=== PATIENT | female | born 1975 | race Asian ===

== ENCOUNTER 2016-12-26 19:47 | Emergency (ER) | payer SELFPAY ==
[~2016-12-26] VITALS: Ht 154.9 cm; Wt 108.9 kg
[~2016-12-26 19:47] MED LIST: SULF1TAB24 PO
--- NOTE | 2016-12-26 20:09 | PHYS DOC ---
Past Medical History Past Medical History: Diabetes-Type II Past Surgical History: No Surgical History Alcohol Use: None Drug Use: None Adult General Chief Complaint Chief Complaint: ABDOMINAL PAIN HPI HPI Patient is a 41 year old female who presents with lower abdominal pain and pelvic pain that started today after she started her menstrual cycle. Patient is currently on her menstrual cycle is complaining of significant pelvic pain more on the left versus the right with radiation to her back. Denies any fevers. Patient denies any previous abdominal surgeries. Patient denies any nausea/vomiting/diarrhea. Patient denies any dysuria. She denies . Pertinent exam findings: Left lower quadrant tenderness palpation with point tenderness of the left pelvic area, soft, bowel sounds heard in all 4 quadrants ED course: Patient was seen and examined in the emergency room CBC, CMP, UA, and urine , lipase, ultrasound of the pelvis was ordered Pertinent results: pelvic US IMPRESSION: Enlarged fibroid uterus with abnormally thickened endometrium at 22 mm. While this may be owing to hyperplasia, neoplasm cannot be entirely excluded. CT Abd and Pelvis IMPRESSION: Fat-containing midline ventral hernia. There is a focal fluid-filled and mildly dilated small bowel loop in the central abdomen, nonspecific. The study is otherwise unremarkable. No acute inflammatory process or fluid collection is seen. There is no free air. Hemoglobin is 9 MDM: After reviewing the chart, CC/HPI/PMH, physical exam, [lab results], [ radiological results], I do not believe the patient has a intra-abdominal emergency warranting further workup and/or admission at this time. Patient has multiple uterine fibroids contributing to her anemia and vaginal bleeding. Recommended patient follow-up as an outpatient with OBGYN and her family doctor for further evaluation and management of her uterine fibroids. Additional verbal discharge instructions were provided to the patient and that if symptoms get worse or any new symptoms arise that are worrisome to the patient she is to return to the emergency room immediately Review of Systems Review of Systems GEN: Denies fevers, chills, sweats HEENT: Denies blurred vision, sore throat CV: Denies chest pain RESP: Denies shortness of air, cough GI: Abdominal pain NEURO: Denies confusion, dizziness MSK: Denies weakness, joint pain/swelling Current Medications Current Medications Current Medications Medications (Trade) Dose Ordered Sig/Veronica Start Time Stop Time Status Last Admin Dose Admin Fentanyl Citrate (Fentanyl 2ml Vial) 50 mcg 1X ONCE 12/26/16 20:30 12/26/16 20:31 DC 12/26/16 20:25 50 MCG Info (Do NOT chart on this entry -- for MONITORING) 1 each PRN DAILY PRN 12/26/16 21:30 12/28/16 21:29 Iohexol (Omnipaque 300 Mg/ml) 75 ml 1X ONCE 12/26/16 21:30 12/26/16 21:31 DC 12/26/16 21:26 75 ML Allergies Allergies Allergies Coded Allergies Type Severity Reaction Last Updated Verified No Known Drug Allergies 05/11/16 No Physical Exam Physical Exam GEN.: No apparent distress. Alert and oriented. HEENT: Head is normocephalic, atraumatic NECK: Supple. LUNGS: CTAB. HEART: RRR, S1, S2 present. Peripheral pulses intact ABDOMEN: Soft, Left lower quadrant tenderness palpation with point tenderness of the left pelvic area, soft, bowel sounds heard in all 4 quadrants EXTREMITIES: Without any cyanosis. NEUROLOGIC: Normal speech, normal tone PSYCHIATRIC: Normal affect, normal mood. SKIN: No ulcerations Current Patient Data Vital Signs Vital Signs Date Time Temp Pulse Resp B/P (MAP) Pulse Ox O2 Delivery O2 Flow Rate FiO2 12/26/16 20:04 98.3 84 20 121/69 (86) 99 Room Air 98.3 Lab Values Laboratory Tests Test 12/26/16 19:17 12/26/16 20:05 12/26/16 20:07 POC Urine HCG, Qualitative Hcg negative (Negative) Urine Collection Type Unknown Urine Color Red Urine Clarity Turbid Urine pH 6.0 Urine Specific [place] 1.020 Urine Protein 100 mg/dL (NEG-TRACE) Urine Glucose (UA) Negative mg/dL (NEG) Urine Ketones (Stick) Trace mg/dL (NEG) Urine Blood Large (NEG) Urine Nitrite Positive (NEG) Urine Bilirubin Small (NEG) Urine Urobilinogen Dipstick 1.0 mg/dL (0.2 mg/dL) Urine Leukocyte Esterase Large (NEG) Urine RBC Tntc /HPF (0-2) Urine WBC 20-40 /HPF (0-4) Urine Squamous Epithelial Cells Few /LPF Urine Bacteria Many /HPF (0-FEW) White Blood Count 14.1 x10^3/uL (4.0-11.0) H Red Blood Count 5.17 x10^6/uL (3.50-5.40) Hemoglobin 9.0 g/dL (12.0-15.5) L Hematocrit 30.2 % (36.0-47.0) L Mean Corpuscular Volume 59 fL (79-100) L Mean Corpuscular Hemoglobin 17 pg (25-35) L Mean Corpuscular Hemoglobin Concent 30 g/dL (31-37) L Red Cell Distribution Width 19.4 % (11.5-14.5) H Platelet Count 349 x10^3/uL (140-400) Neutrophils (%) (Auto) 82 % (31-73) H Lymphocytes (%) (Auto) 10 % (24-48) L Monocytes (%) (Auto) 4 % (0-9) Eosinophils (%) (Auto) 4 % (0-3) H Basophils (%) (Auto) 1 % (0-3) Neutrophils # (Auto) 11.5 x10^3uL (1.8-7.7) H Lymphocytes # (Auto) 1.4 x10^3/uL (1.0-4.8) Monocytes # (Auto) 0.5 x10^3/uL (0.0-1.1) Eosinophils # (Auto) 0.6 x10^3/uL (0.0-0.7) Basophils # (Auto) 0.1 x10^3/uL (0.0-0.2) Platelet Estimate Adequate (ADEQUATE) Hypochromasia Marked Poikilocytosis Anisocytosis Slight Microcytosis Marked Spherocytes Few Target Cells Occ Sodium Level 139 mmol/L (136-145) Potassium Level 3.8 mmol/L (3.5-5.1) Chloride Level 103 mmol/L (98-107) Carbon Dioxide Level 28 mmol/L (21-32) Anion Gap 8 (6-14) Blood Urea Nitrogen 10 mg/dL (7-20) Creatinine 0.7 mg/dL (0.6-1.0) Estimated GFR (Cockcroft-Gault) 92.7 BUN/Creatinine Ratio 14 (6-20) Glucose Level 102 mg/dL (70-99) H Calcium Level 8.0 mg/dL (8.5-10.1) L Total Bilirubin 0.2 mg/dL (0.2-1.0) Aspartate Amino Transferase (AST) 20 U/L (15-37) Alanine Aminotransferase (ALT) 25 U/L (14-59) Alkaline Phosphatase 85 U/L (46-116) Total Protein 8.2 g/dL (6.4-8.2) Albumin 3.4 g/dL (3.4-5.0) Albumin/Globulin Ratio 0.7 (1.0-1.7) L Lipase 201 U/L (73-393) Laboratory Tests 12/26/16 20:07 Laboratory Tests 12/26/16 20:07 EKG EKG [] Radiology/Procedures Radiology/Procedures Pelvic ultrasound : IMPRESSION: Enlarged fibroid uterus with abnormally thickened endometrium at 22 mm. While this may be owing to hyperplasia, neoplasm cannot be entirely excluded. CT Abd Pelvis: IMPRESSION: Fat-containing midline ventral hernia. There is a focal fluid-filled and mildly dilated small bowel loop in the central abdomen, nonspecific. The study is otherwise unremarkable. No acute inflammatory process or fluid collection is seen. There is no free air.[] Course & Med Decision Making Course & Med Decision Making Pertinent Labs and Imaging studies reviewed. (See chart for details) [] Dragon Disclaimer Dragon Disclaimer This electronic medical record was generated, in whole or in part, using a voice recognition dictation system. Departure Departure Impression: Primary Impression: Uterine fibroid Additional Impression: Anemia Disposition: 01 HOME, SELF-CARE Condition: IMPROVED Referrals: UNKNOWN PCP NAME (PCP) CYNTHIA JACOB Jr, MD Please call for a follow-up appointment Patient Instructions: Uterine Fibroid, [id number] Additional Instructions: Please follow up with her family doctor at [facility] appointment with the OB /CHUTE BOSS Problem Qualifiers LANCE DONALDSON DO Dec 26, 2016 20:09
[2016-12-26 20:13] LABS: BASO # 0.1 x10^3/uL (0.0-0.2); BASO % 1 % (0-3); EOS % 4 % (0-3); HEMATOCRIT 30.2 % (36.0-47.0); LYMPH # 1.4 x10^3/uL (1.0-4.8); LYMPH % 10 % (24-48); MEAN CORPUSCULAR HEMOGLOBIN 17 pg (25-35); MEAN CORPUSCULAR HGB CONC 30 g/dL (31-37); MEAN CORPUSCULAR VOLUME 59 fL (79-100); MONO % 4 % (0-9); NEUT % 82 % (31-73); PLATELET COUNT 349 x10^3/uL (140-400); RED BLOOD COUNT 5.17 x10^6/uL (3.50-5.40); RED CELL DISTRIBUTION WIDTH 19.4 % (11.5-14.5); WHITE BLOOD COUNT 14.1 x10^3/uL (4.0-11.0)
[2016-12-26 20:18] LABS: BILIRUBIN,URINE SMALL (NEG); GLUCOSE,URINE NEGATIVE (NEG); NITRITE,URINE POSITIVE (NEG); PROTEIN,URINE 100 mg/dL (NEG-TRACE)
[2016-12-26 20:25] LABS: CREATININE 0.7 mg/dL (0.6-1.0); GFR 92.7; POTASSIUM 3.8 mmol/L (3.5-5.1)
[2016-12-26 20:27] LABS: BACTERIA,URINE MANY /HPF (0-FEW); RBC,URINE TNTC /HPF (0-2); SQUAMOUS EPITHELIAL CELL,UR FEW /LPF; WBC,URINE 20-40 /HPF (0-4)
[2016-12-26] MEDS ORDERED: fentaNYL PF VIAL 100 MCG/2 ML VIAL IV ONE (20:30)
[2016-12-26 20:31] LABS: ALBUMIN 3.4 g/dL (3.4-5.0); ALBUMIN/GLOBULIN RATIO 0.7 (1.0-1.7); TOTAL BILIRUBIN 0.2 mg/dL (0.2-1.0); TOTAL PROTEIN 8.2 g/dL (6.4-8.2)
[2016-12-26 20:46] LABS: ANISOCYTOSIS SLIGHT; HYPOCHROMIA MARKED; MICROCYTOSIS MARKED; PLT ESTIMATE ADEQUATE (ADEQUATE); SPHEROCYTES FEW; TARGET CELLS OCC
--- NOTE | 2016-12-26 21:22 | RAD ---
Indication: Left pelvic pain and vaginal bleeding. The study is compromised due to large body habitus. Transabdominal and transvaginal pelvic sonography was performed. The uterus measures 9.9 x 7.2 x 7.1 cm. Numerous hypoechoic myometrial masses are seen suggestive of fibroids. The endometrium is thickened at 22 mm. There is trace of fluid in the cervix. The left ovary was not visualized. Right ovary is limited in evaluation but there is blood flow present. No adnexal mass or free fluid is seen. IMPRESSION: Enlarged fibroid uterus with abnormally thickened endometrium at 22 mm. While this may be owing to hyperplasia, neoplasm cannot be entirely excluded. Electronically signed by: Jose Javier MD (12/26/2016 9:19 PM)
[2016-12-26] MEDS ORDERED: IOHEXOL 300 MG/ML 75 ML VIAL IV ONE (21:30)
[2016-12-26] MEDS ORDERED: CONTRAST GIVEN MC PRN (21:30)
--- NOTE | 2016-12-26 21:57 | RAD ---
Indication: Abdominal and pelvic pain. Axial imaging through the abdomen and pelvis was performed after the administration of intravenous contrast. One or more of the following individualized dose reduction techniques were utilized for this examination: 1. Automated exposure control 2. Adjustment of the mA and/or kV according to patient size 3. Use of iterative reconstruction technique The lung bases are clear. No discrete liver mass is detected. The gallbladder is unremarkable. The pancreas and spleen are unremarkable. No adrenal mass is detected. The kidneys are unremarkable. The aorta is nonaneurysmal. There is a midline fat-containing ventral hernia. No herniated bowel loops are seen. There is a focal a mildly prominent fluid-filled small bowel loop in the central abdomen. The remainder of the bowel loops are normal caliber. No inflammatory process is seen. Bladder and uterus are unremarkable. There is no free air. There is moderate stool in the colon. IMPRESSION: Fat-containing midline ventral hernia. There is a focal fluid-filled and mildly dilated small bowel loop in the central abdomen, nonspecific. The study is otherwise unremarkable. No acute inflammatory process or fluid collection is seen. There is no free air. Electronically signed by: Jose Javier MD (12/26/2016 9:53 PM)
[2016-12-26 22:38] VITALS: BP 126/90
== END 2016-12-26 22:44 | disposition home or self-care (01) ==
LOC: ER 19:47
DX: D25.9 Leiomyoma of uterus, unspecified (principal); D64.9 Anemia, unspecified; E11.9 Type 2 diabetes mellitus without complications
CPT/HCPCS: 36415; 74177; 76830; 76856; 80053; 81001; 81025; 83690; 85007; 85027; 87086; 96374; 99285; J3010; Q9967

== ENCOUNTER 2017-05-05 17:20 | Emergency (ER) | payer OTHER ==
[~2017-05-05] VITALS: Ht 152.4 cm; Wt 108.9 kg
[2017-05-05 18:22] LABS: POTASSIUM ISTAT 3.6 mmol/L (3.5-5.0)
[2017-05-05 18:52] VITALS: BP 132/77
[2017-05-05] MEDS ORDERED: HYDR25SU18 RC (18:57)
--- NOTE | 2017-05-05 18:58 | PHYS DOC ---
Past Medical History Past Medical History: Diabetes-Type II Past Surgical History: No Surgical History Alcohol Use: None Drug Use: None Adult General Chief Complaint Chief Complaint: RECTAL BLEED HPI HPI Patient is a 42 year old female who has no history in the past presents here today secondary to noticing blood in her stool over the last couple days. Patient denies any fevers shakes chills nausea vomiting diarrhea chest pain shortness of breath cough cold or rhinorrhea. Patient has any abdominal discomfort. Patient denies any easy bruising. Patient denies any gum bleeding. Patient denies any history of hypertension liver longer kidney problems. Patient does have a history of diabetes and anemia in the past. Patient does not smoke drink or do any drugs. Patient is not allergic to any medications. Her last menstrual period was approximately 2 days ago. Patient reports that she's noticed small amount of blood in the toilet last couple times she's had a bowel movement. Patient denies any prior episodes of this. Patient denies any dizziness, syncope, presyncopal episodes. Review of systems: Constitutional: Denies fever or chills Eyes: Denies change in visual acuity, redness, or eye pain All other systems were reviewed and found to be within normal limits, except as documented in this note. Physical exam: Constitutional: Well developed, well nourished, no acute distress, non-toxic appearance. HENT: Normocephalic, atraumatic, bilateral external ears normal, Eyes: EOMI, conjunctiva normal, no discharge. Neck: Normal range of motion, no tenderness, supple, no stridor. Cardiovascular:Heart rate regular rhythm Lungs & Thorax: Bilateral breath sounds clear to auscultation Abdomen: Bowel sounds normal, soft, no tenderness, no masses, no pulsatile masses. Skin: Warm, dry, no erythema, no rash. Back: No tenderness, no CVA tenderness. Extremities: No tenderness, no cyanosis, no clubbing, ROM intact, no edema. Neurologic: Alert and oriented X 3, normal motor function, normal sensory function, no focal deficits noted. Psychologic: Affect normal, judgement normal, mood normal. Patient's ER physical exam is significant for a rectal exam that reveals a small hemorrhoid at the 6 o'clock position with a clot an area of recent bleed. Currently no active bleeding noted. Assessment and plan This is a 42-year-old female who presents to the ER today secondary to 100 stool. Patient is clinically hemodynamically stable at this time. Patient will need to have further outpatient evaluation to rule out polyps. Patient does appear to have a small hemorrhoid which is the likely source of bleeding. The family understands that there might be other sources are identified in the ED and will need to have a colonoscopy done as an outpatient for definitive diagnosis. Patient is clinically hemodynamically stable and stable for outpatient evaluation. Allergies Allergies Allergies Coded Allergies Type Severity Reaction Last Updated Verified No Known Drug Allergies 05/11/16 No Current Patient Data Vital Signs Vital Signs Date Time Temp Pulse Resp B/P (MAP) Pulse Ox O2 Delivery O2 Flow Rate FiO2 05/05/17 17:40 98.1 77 16 123/58 (79) 98 Room Air 98.1 Lab Values Laboratory Tests Test 05/05/17 17:49 05/05/17 18:17 POC Urine HCG, Qualitative Hcg negative (Negative) POC Hemoglobin 10.2 g/dL (12-15) L POC Hematocrit 30 % (36-40) L POC Sodium 140 mmol/L (135-145) POC Potassium 3.6 mmol/L (3.5-5.0) POC Chloride 102 mmol/L (98-110) POC Total CO2 26 mmol/L (23-32) Anion Gap 17 mmol/L (6-14) H POC Blood Urea Nitrogen 11 mg/dL (8-26) POC Creatinine 0.7 mg/dL (0.5-1.4) Glucose Level 78 mg/dL (70-99) POC Ionized Calcium (Aki) 1.13 mmol/L (1.13-1.32) Laboratory Tests 05/05/17 18:17 EKG EKG [] Radiology/Procedures Radiology/Procedures [] Course & Med Decision Making Course & Med Decision Making Pertinent Labs and Imaging studies reviewed. (See chart for details) [] Dragon Disclaimer Dragon Disclaimer This electronic medical record was generated, in whole or in part, using a voice recognition dictation system. Departure Departure Impression: Primary Impression: Rectal bleeding Additional Impression: Hemorrhoid Disposition: 01 HOME, SELF-CARE Condition: IMPROVED Referrals: NO PCP (PCP) STEPHY ROGERS MD [facility] [employer],[facility] Patient Instructions: Hemorrhoids, Rectal Bleeding Additional Instructions: Please make an appointment to see a primary care doctor so that they can evaluate further for your bleeding. You will likely benefit from a colonoscopy. Scripts Hydrocortisone Acetate (ANUSOL-HC) 25 Mg Supp.rect 1 SUPP RC BID, #14 SUPP Prov: POPEYE KAY MD 05/05/17 Problem Qualifiers POPEYE KAY MD May 05, 2017 18:58
== END 2017-05-05 19:15 | disposition home or self-care (01) ==
LOC: ER 17:20
DX: K64.9 Unspecified hemorrhoids (principal); E11.9 Type 2 diabetes mellitus without complications
CPT/HCPCS: 36415; 80047; 81025; 85014; 85018; 99283-25

== ENCOUNTER 2018-10-22 18:55 | Emergency (ER) | payer OTHER ==
[~2018-10-22] VITALS: Ht 152.4 cm; Wt 127.0 kg
[~2018-10-22 18:55] MED LIST changes: +HYDR25SU18 RC
[2018-10-22 20:13] VITALS: BP 122/77
[2018-10-22 20:22] LABS: BILIRUBIN,URINE NEGATIVE (NEG); CLARITY,URINE CLEAR; COLOR,URINE YELLOW; NITRITE,URINE NEGATIVE (NEG); PROTEIN,URINE NEGATIVE (NEG-TRACE); UROBILINOGEN,URINE 0.2 mg/dL (0.2 mg/dL)
[2018-10-22 20:26] LABS: U PREG PATIENT NEGATIVE (NEG)
[2018-10-22 20:27] LABS: BACTERIA,URINE MODERATE /HPF (0-FEW); RBC,URINE OCC /HPF (0-2); SQUAMOUS EPITHELIAL CELL,UR FEW /LPF; WBC,URINE 20-40 /HPF (0-4)
[2018-10-22] MEDS ORDERED: NITR100C62 PO (20:32)
--- NOTE | 2018-10-22 20:32 | PHYS DOC ---
Past Medical History Past Medical History: No Pertinent History, UTI (FADUMO YOUNG APRN) Past Surgical History: No Surgical History (FADUMO YOUNG APRN) Alcohol Use: None Drug Use: None (FADUMO YOUNG APRN) Adult General Chief Complaint Chief Complaint: PAIN ON URINATION [facility] Patient is a 43 year old female presents for evaluation of dysuria, urgency, frequency and chills since last week. (FADUMO YOUNG APRN) Review of Systems Review of Systems Constitutional: Denies fever or chills [] Eyes: Denies change in visual acuity, redness, or eye pain [] HENT: Denies nasal congestion or sore throat [] Respiratory: Denies cough or shortness of breath [] Cardiovascular: No additional information not addressed in HPI [] GI: Denies abdominal pain, nausea, vomiting, bloody stools or diarrhea [] : Denies dysuria or hematuria [] Musculoskeletal: Denies back pain or joint pain [] Integument: Denies rash or skin lesions [] Neurologic: Denies headache, focal weakness or sensory changes [] Endocrine: Denies polyuria or polydipsia [] All other systems were reviewed and found to be within normal limits, except as documented in this note. (FADUMO YOUNG APRN) Allergies Allergies Allergies Coded Allergies Type Severity Reaction Last Updated Verified No Known Drug Allergies 05/11/16 No (YELENA RIVERA DO) Physical Exam Physical Exam Constitutional: Well developed, well nourished, no acute distress, non-toxic appearance. [] HENT: Normocephalic, atraumatic, bilateral external ears normal, oropharynx moist, no oral exudates, nose normal. [] Eyes: PERRLA, EOMI, conjunctiva normal, no discharge. [] Neck: Normal range of motion, no tenderness, supple, no stridor. [] Cardiovascular:Heart rate regular rhythm, no murmur [] Lungs & Thorax: Bilateral breath sounds clear to auscultation [] Abdomen: Bowel sounds normal, soft, no tenderness, no masses, no pulsatile masses. [] Skin: Warm, dry, no erythema, no rash. [] Back: No tenderness, no CVA tenderness. [] Extremities: No tenderness, no cyanosis, no clubbing, ROM intact, no edema. [] Neurologic: Alert and oriented X 3, normal motor function, normal sensory function, no focal deficits noted. [] Psychologic: Affect normal, judgement normal, mood normal. [] (FADUMO YOUNG APRN) Current Patient Data Vital Signs Vital Signs Date Time Temp Pulse Resp B/P (MAP) Pulse Ox O2 Delivery O2 Flow Rate FiO2 10/22/18 20:13 98.4 66 16 122/77 (92) 97 Room Air 98.4 (YELENA RIVERA DO) Lab Values Laboratory Tests Test 10/22/18 19:40 10/22/18 20:13 Urine Collection Type Unknown Urine Color Yellow Urine Clarity Clear Urine pH 7.0 Urine Specific [place] 1.020 Urine Protein Negative mg/dL (NEG-TRACE) Urine Glucose (UA) Negative mg/dL (NEG) Urine Ketones (Stick) Negative mg/dL (NEG) Urine Blood Negative (NEG) Urine Nitrite Negative (NEG) Urine Bilirubin Negative (NEG) Urine Urobilinogen Dipstick 0.2 mg/dL (0.2 mg/dL) Urine Leukocyte Esterase Moderate (NEG) Urine RBC Occ /HPF (0-2) Urine WBC 20-40 /HPF (0-4) Urine Squamous Epithelial Cells Few /LPF Urine Bacteria Moderate /HPF (0-FEW) Urine Mucus Marked /LPF Urine Test Negative (NEG) POC Urine HCG, Qualitative Hcg negative (Negative) (YELENA RIVERA DO) EKG EKG [] (FADUMO YOUNG APRN) Radiology/Procedures Radiology/Procedures [] (FADUMO YOUNG APRN) Course & Med Decision Making Course & Med Decision Making Pertinent Labs and Imaging studies reviewed. (See chart for details) [Patient treated for UTI, prescription for Macrobid, recommend follow-up with primary care doctor. Return to ER for new or worsening symptoms.] (FADUMO YOUNG APRN) Dragon Disclaimer Dragon Disclaimer This electronic medical record was generated, in whole or in part, using a voice recognition dictation system. (FADUMO YOUNG APRN) Departure Departure Impression: Primary Impression: Urinary tract infection Referrals: UNKNOWN PCP NAME (PCP) Patient Instructions: Urinary Tract Infection Scripts Nitrofurantoin Monohyd/M-Cryst (MACROBID 100 MG CAPSULE) 100 Mg Capsule 1 CAP PO BID, #10 CAP Prov: FADUMO YOUNG GINNING OPERATOR 10/22/18 Attending Signature Attending Signature I have reviewed the PA/WASHERETTE MACHINE OPERATOR's note and plan of care. I was available for consultation as needed during the patient's visit in the emergency department. I agree with the clinical impression, plan, and disposition. (YELENA RIVERA DO) Problem Qualifiers Primary Impression: Urinary tract infection Urinary tract infection type: acute cystitis Hematuria presence: without hematuria Qualified Codes: N30.00 - Acute cystitis without hematuria FADUMO YOUNG GINNING OPERATOR Oct 22, 2018 20:32 YELENA RIVERA DO October 25, 2018 01:37
== END 2018-10-22 20:53 | disposition home or self-care (01) ==
LOC: ER 18:55
DX: N30.00 Acute cystitis without hematuria (principal); R50.9 Fever, unspecified
CPT/HCPCS: 81001; 81025; 87086; 87186; 99284

== ENCOUNTER 2019-03-02 16:11 | Emergency (ER) | payer SELFPAY ==
[~2019-03-02] VITALS: Ht 157.5 cm; Wt 97.5 kg
[~2019-03-02 16:11] MED LIST changes: +NITR100C62 PO
[2019-03-02 16:12] VITALS: BP 146/69
[2019-03-02 16:34] LABS: BILIRUBIN,URINE NEGATIVE (NEG); CLARITY,URINE CLOUDY; COLOR,URINE YELLOW; NITRITE,URINE NEGATIVE (NEG); PH,URINE 5.5; PROTEIN,URINE NEGATIVE (NEG-TRACE)
[2019-03-02 16:40] LABS: BACTERIA,URINE FEW /HPF (0-FEW); RBC,URINE 0 /HPF (0-2); SQUAMOUS EPITHELIAL CELL,UR MANY /LPF; WBC,URINE TNTC /HPF (0-4)
--- NOTE | 2019-03-02 16:42 | PHYS DOC ---
Past Medical History Past Medical History: No Pertinent History, UTI Past Surgical History: No Surgical History Alcohol Use: None Drug Use: None Adult General Chief Complaint Chief Complaint: PAIN ON URINATION [facility] Patient is a 43 year old female that resents with painful urination since this morning. Patient rates her pain as 5 out of 10 in severity and states it sharp. No medication prior to arrival. Review of Systems Review of Systems Constitutional: Denies fever but reports chills [] Eyes: Denies change in visual acuity, redness, or eye pain [] HENT: Denies nasal congestion or sore throat [] Respiratory: Denies cough or shortness of breath [] Cardiovascular: No additional information not addressed in [facility] [] GI: Reports abdominal pain when she urinates Denies nausea, vomiting, bloody stools or diarrhea [] : Reports dysuria Musculoskeletal: Denies back pain or joint pain [] Integument: Denies rash or skin lesions [] Neurologic: Denies headache, focal weakness or sensory changes [] Endocrine: Denies polyuria or polydipsia [] Complete systems were reviewed and found to be within normal limits, except as documented in this note. Allergies Allergies Allergies Coded Allergies Type Severity Reaction Last Updated Verified No Known Drug Allergies 05/11/16 No Physical Exam Physical Exam Constitutional: Well developed, well nourished, no acute distress, non-toxic appearance. [] HENT: Normocephalic, atraumatic, bilateral external ears normal, oropharynx moist, no oral exudates, nose normal. [] Eyes: PERRLA, EOMI, conjunctiva normal, no discharge. [] Neck: Normal range of motion, no tenderness, supple, no stridor. [] Cardiovascular:Heart rate regular rhythm, no murmur [] Lungs & Thorax: Bilateral breath sounds clear to auscultation [] Abdomen: Bowel sounds normal, soft, mild bilateral lower abdominal tenderness, no masses, no pulsatile masses. [] Skin: Warm, dry, no erythema, no rash. [] Back: No tenderness, no CVA tenderness. [] Extremities: No tenderness, no cyanosis, no clubbing, ROM intact, no edema. [] Neurologic: Alert and oriented X 3, normal motor function, normal sensory function, no focal deficits noted. [] Psychologic: Affect normal, judgement normal, mood normal. [] Current Patient Data Vital Signs Vital Signs Date Time Temp Pulse Resp B/P (MAP) Pulse Ox O2 Delivery O2 Flow Rate FiO2 03/02/19 16:12 98.1 85 18 146/69 (94) 95 Room Air 98.1 Lab Values Laboratory Tests Test 03/02/19 16:18 Urine Collection Type Unknown Urine Color Yellow Urine Clarity Cloudy Urine pH 5.5 Urine Specific [place] 1.025 Urine Protein Negative mg/dL (NEG-TRACE) Urine Glucose (UA) Negative mg/dL (NEG) Urine Ketones (Stick) Negative mg/dL (NEG) Urine Blood Negative (NEG) Urine Nitrite Negative (NEG) Urine Bilirubin Negative (NEG) Urine Urobilinogen Dipstick 1.0 mg/dL (0.2 mg/dL) Urine Leukocyte Esterase Large (NEG) Urine RBC 0 /HPF (0-2) Urine WBC Tntc /HPF (0-4) Urine Squamous Epithelial Cells Many /LPF Urine Bacteria Few /HPF (0-FEW) EKG EKG [] Radiology/Procedures Radiology/Procedures [] Course & Med Decision Making Course & Med Decision Making Pertinent Labs and Imaging studies reviewed. (See chart for details) Will get UA. Urine shows leukocytes. Will treat for UTI with Keflex. Dragon Disclaimer Dragon Disclaimer This electronic medical record was generated, in whole or in part, using a voice recognition dictation system. Departure Departure Impression: Primary Impression: Urinary tract infection Disposition: 01 HOME, SELF-CARE Condition: STABLE Referrals: UNKNOWN PCP NAME (PCP) Patient Instructions: Urinary Tract Infection Additional Instructions: Thank you for visiting [facility]. We appreciate you trusting us with your care. If any additional problems come up don't hesitate to return to visit us. Please follow up with your primary care provider so they can plan additional care if needed and know about the problem that you had. If symptoms worsen come back to the Emergency Department. Any concerning symptoms that start such as chest pain, shortness of air, weakness or numbness on one side of the body, running high fevers or any other concerning symptoms return to the ER. You have been prescribed an antibiotic today to help fight your infection. Please take all of the antibiotic as directed. If after 48 hours the infection is not improving, please return for more care. If the infection worsens, return to ER for additional care. Scripts Cephalexin (KEFLEX) 500 Mg Capsule 1 CAP PO BID for 7 Days, #14 CAP Prov: YELENA COON APRN 03/02/19 Problem Qualifiers Primary Impression: Urinary tract infection Urinary tract infection type: acute cystitis Hematuria presence: without hematuria Qualified Codes: N30.00 - Acute cystitis without hematuria YELENA COON APRN Mar 02, 2019 16:42
[2019-03-02] MEDS ORDERED: CEPH-264 PO (16:44)
== END 2019-03-02 16:59 | disposition home or self-care (01) ==
LOC: ER 16:11
DX: N30.00 Acute cystitis without hematuria (principal)
CPT/HCPCS: 81001; 87086; 87186; 99284

== ENCOUNTER 2019-05-09 12:21 | Emergency (ER) | payer SELFPAY ==
[~2019-05-09] VITALS: Ht 152.4 cm; Wt 97.5 kg
[~2019-05-09 12:21] MED LIST changes: +CEPH-264 PO
[2019-05-09 13:12] LABS: U PREG PATIENT NEGATIVE (NEG)
[2019-05-09 13:17] LABS: BILIRUBIN,URINE NEGATIVE (NEG); CLARITY,URINE CLEAR; COLOR,URINE YELLOW; NITRITE,URINE NEGATIVE (NEG); PROTEIN,URINE NEGATIVE (NEG-TRACE)
[2019-05-09 13:20] LABS: BACTERIA,URINE FEW /HPF (0-FEW); RBC,URINE OCC /HPF (0-2); SQUAMOUS EPITHELIAL CELL,UR MOD /LPF; WBC,URINE >40 /HPF (0-4)
[2019-05-09] MEDS ORDERED: HYDROcodone/APAP 5/325MG 1 TAB TABLET PO ONE (14:00)
[2019-05-09] MEDS ORDERED: CEPH-264 PO (14:18)
[2019-05-09] MEDS ORDERED: PHEN100T82 PO (14:18)
[2019-05-09] MEDS ORDERED: TRAM-48 PO ×2 (14:18→14:21)
--- NOTE | 2019-05-09 14:21 | PHYS DOC ---
Past Medical History Past Medical History: No Pertinent History Past Surgical History: No Surgical History Alcohol Use: None Drug Use: None Adult General Chief Complaint Chief Complaint: FLANK PAIN HPI HPI Patient is a 44 year old [f__sex] who presents with [] Review of Systems Review of Systems Constitutional: Denies fever or chills [] Eyes: Denies change in visual acuity, redness, or eye pain [] HENT: Denies nasal congestion or sore throat [] Respiratory: Denies cough or shortness of breath [] Cardiovascular: No additional information not addressed in HPI [] GI: Denies abdominal pain, nausea, vomiting, bloody stools or diarrhea [] : Denies dysuria or hematuria [] Musculoskeletal: Denies back pain or joint pain [] Integument: Denies rash or skin lesions [] Neurologic: Denies headache, focal weakness or sensory changes [] Endocrine: Denies polyuria or polydipsia [] All other systems were reviewed and found to be within normal limits, except as documented in this note. Current Medications Current Medications Current Medications Medications (Trade) Dose Ordered Sig/Veronica Start Time Stop Time Status Last Admin Dose Admin Acetaminophen/ Hydrocodone Bitart (Lortab 5/325) 1 tab 1X ONCE 05/09/19 14:00 05/09/19 14:01 DC 05/09/19 14:02 1 TAB Ceftriaxone Sodium (Rocephin Im) 1 gm 1X ONCE 05/09/19 14:30 05/09/19 14:31 DC 05/09/19 14:38 1 GM Allergies Allergies Allergies Coded Allergies Type Severity Reaction Last Updated Verified No Known Drug Allergies 05/11/16 No Physical Exam Physical Exam Constitutional: Well developed, well nourished, no acute distress, non-toxic appearance. [] HENT: Normocephalic, atraumatic, bilateral external ears normal, oropharynx moist, no oral exudates, nose normal. [] Eyes: PERRLA, EOMI, conjunctiva normal, no discharge. [] Neck: Normal range of motion, no tenderness, supple, no stridor. [] Cardiovascular:Heart rate regular rhythm, no murmur [] Lungs & Thorax: Bilateral breath sounds clear to auscultation [] Abdomen: Bowel sounds normal, soft, no tenderness, no masses, no pulsatile masses. [] Skin: Warm, dry, no erythema, no rash. [] Back: No tenderness, no CVA tenderness. [] Extremities: No tenderness, no cyanosis, no clubbing, ROM intact, no edema. [] Neurologic: Alert and oriented X 3, normal motor function, normal sensory function, no focal deficits noted. [] Psychologic: Affect normal, judgement normal, mood normal. [] Current Patient Data Vital Signs Vital Signs Date Time Temp Pulse Resp B/P (MAP) Pulse Ox O2 Delivery O2 Flow Rate FiO2 05/09/19 15:00 70 18 118/59 (78) 95 Room Air 05/09/19 12:50 98.6 98.6 Lab Values Laboratory Tests Test 05/09/19 12:25 Urine Collection Type Unknown Urine Color Yellow Urine Clarity Clear Urine pH 8.0 Urine Specific [place] 1.015 Urine Protein Negative mg/dL (NEG-TRACE) Urine Glucose (UA) Negative mg/dL (NEG) Urine Ketones (Stick) Negative mg/dL (NEG) Urine Blood Negative (NEG) Urine Nitrite Negative (NEG) Urine Bilirubin Negative (NEG) Urine Urobilinogen Dipstick 1.0 mg/dL (0.2 mg/dL) Urine Leukocyte Esterase Moderate (NEG) Urine RBC Occ /HPF (0-2) Urine WBC >40 /HPF (0-4) Urine Squamous Epithelial Cells Mod /LPF Urine Bacteria Few /HPF (0-FEW) Urine Mucus Mod /LPF Urine Test Negative (NEG) EKG EKG [] Radiology/Procedures Radiology/Procedures [] Course & Med Decision Making Course & Med Decision Making Pertinent Labs reviewed. (See chart for details) Evaluation of patient in ER showed 44-year-old female patient with complaining of left lower abdominal and flank pain with history of previous episodes of UTI. Patient had unremarkable physical exam with stable vital signs UA showed more than 40 WBC and patient treated with IM dose of Rocephin and discharged home with prescription of Rocephin and Pyridium and pain medication. I've spoken with the patient and/or caregivers. I've explained the patient's condition, diagnosis and treatment plan based on information available to me at this time. I've answered the patient's and/or caregivers questions and addressed any concerns. The patient and/or caregivers have a good understanding the patient's diagnosis, condition and treatment plan as can be expected at this point. Vital signs have been stabilized. The patient's condition is stable for discharge from the emergency department. The patient will pursue further outpatient evaluation with her primary care provider or other designated consulting physician as outlined in the discharge instructions. Patient and/or caregivers are agreeable to this plan of care and follow-up instructions have been explained in detail. The patient and/or care givers have received these instructions in written format and expressed understanding of these discharge instructions. The patient and her caregivers are aware that if any significant change in condition or worsening of symptoms should prompt him to immediately return to this of the closest emergency department. If an emergent department is not readily available I would encourage him to call 911. Mirza Disclaimer Dragon Disclaimer This electronic medical record was generated, in whole or in part, using a voice recognition dictation system. Departure Departure Impression: Primary Impression: Urinary tract infection Additional Impression: Left lower quadrant pain Disposition: HOME, SELF-CARE (at 1415) Condition: IMPROVED Referrals: NO PCP (PCP) Patient Instructions: Urinary Tract Infection Additional Instructions: Drink plenty of liquids Follow-up with your primary care physician in 3-5 days Return to ER if not getting better Scripts Tramadol Hcl (ULTRAM) 50 Mg Tablet 50 MG PO Q6HRS PRN for PAIN, #14 TAB 0 Refills Prov: VAIBHAV VERGARA MD 05/09/19 Phenazopyridine Hcl (PYRIDIUM) 100 Mg Tablet 100 MG PO TID for dysuria, #10 TAB Prov: VAIBHAV VERGARA MD 05/09/19 Cephalexin (KEFLEX) 500 Mg Capsule 2 CAP PO Q12HR, #40 CAP Prov: VAIBHAV VERGARA MD 05/09/19 Problem Qualifiers Primary Impression: Urinary tract infection Urinary tract infection type: acute cystitis Hematuria presence: without hematuria Qualified Codes: N30.00 - Acute cystitis without hematuria VAIBHAV VERGARA MD May 09, 2019 14:21
[2019-05-09] MEDS ORDERED: cefTRIAXone IM 1 GM VIAL IM ONE (14:30)
[2019-05-09 15:00] VITALS: BP 118/59
== END 2019-05-09 15:32 | disposition home or self-care (01) ==
LOC: ER 12:21
DX: N30.00 Acute cystitis without hematuria (principal)
CPT/HCPCS: 81001; 81025; 87086; 96372; 99284; J0696